=== PATIENT | female | born 1985 | race African-American/Black ===

== ENCOUNTER 2017-03-08 14:42 | Emergency (ER) | payer SELFPAY ==
--- NOTE | 2017-03-08 15:20 | ER Document Report ---
ED Medical Screen (RME) - General Chief Complaint: Abdominal Pain Stated Complaint: ABDOMINA PAIN Time Seen by Provider: 03/08/17 15:18 Mode of Arrival: Ambulatory Information source: Patient TRAVEL OUTSIDE OF THE [place] IN LAST 30 DAYS: No - HPI Patient complains to provider of: abd pain Onset: Other - pt. with 2 day h/o L -sided abdominal pain - Related Data Allergies/Adverse Reactions: No Known Allergies Allergy (Verified 03/08/17 14:53) Past Medical History - Social History Chew tobacco use (# tins/day): No Frequency of alcohol use: None Drug Abuse: None Renal/ Medical History: Denies: Hx Peritoneal Dialysis Surgical Hx: Negative - Immunizations Hx Diphtheria, Pertussis, Tetanus Vaccination: Yes Physical Exam - Vital signs Vitals: Temp Pulse Resp BP Pulse Ox 98.2 F 85 16 113/66 99 03/08/17 14:53 03/08/17 14:53 03/08/17 14:53 03/08/17 14:53 03/08/17 14:53 Course - Vital Signs Vital signs: Temp Pulse Resp BP Pulse Ox 98.2 F 85 16 113/66 99 03/08/17 14:53 03/08/17 14:53 03/08/17 14:53 03/08/17 14:53 03/08/17 14:53
[2017-03-08 16:02] LABS: ABSOLUTE BASOPHILS # (AUTO) 0.1 10^3/uL (0.0-0.2); ABSOLUTE EOSINOPHILS # (AUTO) 0.2 10^3/uL (0.0-0.6); ABSOLUTE LYMPHOCYTES (AUTO) 2.2 10^3/uL (0.5-4.7); ABSOLUTE MONOCYTES (AUTO) 0.5 10^3/uL (0.1-1.4); ABSOLUTE NEUT (AUTO) 3.4 10^3/uL (1.7-8.2); BASOPHILS % (AUTO) 0.9 % (0-2); EOSINOPHILS % (AUTO) 3.2 % (0-6); HEMATOCRIT 33.7 % (36.0-47.0); HEMOGLOBIN 10.6 g/dL (12.0-15.5); HGB HCT DIFFERENCE -1.9; LYMPHOCYTES % (AUTO) 34.3 % (13-45); MEAN CORPUSCULAR HEMOGLOBIN 20.5 pg (27.0-33.4); MEAN CORPUSCULAR HGB CONC 31.5 g/dL (32.0-36.0); MEAN CORPUSCULAR VOLUME 65 fl (80-97); MONOCYTES % (AUTO) 8.6 % (3-13); RED BLOOD COUNT 5.17 10^6/uL (3.72-5.28); RED CELL DISTRIBUTION WIDTH 18.9 % (11.5-14.0); WHITE BLOOD COUNT 6.4 10^3/uL (4.0-10.5)
[2017-03-08 16:16] LABS: APPEARANCE,URINE CLEAR; BILIRUBIN,URINE NEGATIVE (NEGATIVE); GLUCOSE, URINE NEGATIVE (NEGATIVE); KETONES,URINE NEGATIVE (NEGATIVE); LEUKOCYTE ESTERASE,URINE NEGATIVE (NEGATIVE); NITRITE,URINE NEGATIVE (NEGATIVE); PROTEIN,URINE NEGATIVE (NEGATIVE); URINE SPECIFIC GRAVITY 1.012; UROBILINOGEN,URINE NEGATIVE mg/dL (<2.0)
--- NOTE | 2017-03-08 16:53 | RADIOLOGY REPORT (SQ) ---
EXAM DESCRIPTION: CT ABD/PELVIS WITH IV ONLY COMPLETED DATE/TIME: 03/08/2017 4:30 pm REASON FOR STUDY: abd pain COMPARISON: 11/23/2014. TECHNIQUE: CT scan of the abdomen and pelvis performed using helical scanning technique with dynamic intravenous contrast injection. No oral contrast. Images reviewed with lung, soft tissue, and bone windows. Reconstructed coronal and sagittal MPR images reviewed. Delayed images for evaluation of the urinary system also acquired. All images stored on PACS. All CT scanners at this facility use dose modulation, iterative reconstruction, and/or weight based d osing when appropriate to reduce radiation dose to as low as reasonably achievable (ALARA). [facility]: Dose Right [facility]: CareDose [facility]: Dose Right [facility]: Teradose 4D [facility]: DiaDerma BV CONTRAST TYPE AND DOSE: contrast/concentration: Isovue 370.00 mg/ml; Total Contrast Delivered: 100.0 ml; Total Saline Delivered: 45.0 ml RENAL FUNCTION: None required. The patient is less than 50 years old. RADIATION DOSE: Up-to-date CT equipment and radiation dose reduction techniques were employed. CTDIv ol: 16.2 - 20.2 mGy. DLP: 1990 mGy-cm.. LIMITATIONS: None. FINDINGS: LOWER CHEST: No significant findings. No nodules or infiltrates. LIVER: Normal size. No masses. No dilated ducts. SPLEEN: Normal size. No focal lesions. PANCREAS: No masses. No significant calcifications. No adjacent inflammation or peripancreatic fluid collections. Pancreatic duct not dilated. GALLBLADDER: No identified stones by CT criteria. No inflammatory changes to suggest cholecystitis. ADRENAL GLANDS: No significant masses or asymmetry. RIGHT KIDNEY AND URETER: No solid masses. No significant calcifications. No hydronephrosis or hyd roureter. LEFT KIDNEY AND URETER: No solid masses. No significant calcifications. No hydronephrosis or hydr oureter. AORTA AND VESSELS: No aneurysm. No dissection. Renal arteries, SMA, celiac without stenosis. RETROPERITONEUM: No retroperitoneal adenopathy, hemorrhage or masses. BOWEL AND PERITONEAL CAVITY: No masses or inflammatory changes. No free fluid or peritoneal masses. APPENDIX: Normal. PELVIS: No mass. No free fluid. Normal bladder. ABDOMINAL WALL: No masses. No hernias. BONES: No significant or acute findings. OTHER: No other significant finding. IMPRESSION: NO SIGNIFICANT OR ACUTE FINDING IN THE ABDOMEN OR PELVIS ON CT SCAN WITH IV CONTRAST. TECHNICAL DOCUMENTATION: JOB ID: [id number] Quality ID # [id number]: Final reports with documentation of one or more dose reduction techniques (e.g., Au tomated exposure control, adjustment of the mA and/or kV according to patient size, use of iterative reconstruction technique) 2010 [employer]- All Rights Reserved
[2017-03-08 18:10] LABS: ALANINE AMINOTRANSFERASE 22 U/L (9-52); ALBUMIN 4.3 g/dL (3.5-5.0); ALKALINE PHOSPHATASE 89 U/L (38-126); ANION GAP 12 (5-19); ASPARTATE AMINO TRANSFERASE 18 U/L (14-36); BILIRUBIN,DIRECT 0.3 mg/dL (0.0-0.4); BILIRUBIN,TOTAL 0.4 mg/dL (0.2-1.3); BLOOD UREA NITROGEN 8 mg/dL (7-20); CARBON DIOXIDE 24 mmol/L (22-30); CHLORIDE 102 mmol/L (98-107); CREATININE RESULT 0.69 mg/dL (0.52-1.25); GLUCOSE 99 mg/dL (75-110); LIPASE 65.5 U/L (23-300); POTASSIUM 4.2 mmol/L (3.6-5.0); SODIUM 138.1 mmol/L (137-145); TOTAL PROTEIN 7.6 g/dL (6.3-8.2)
--- NOTE | 2017-03-08 18:10 | ER Document Report ---
HPI - HPI Pain Level: 3 Notes: Patient is a 31-year-old female who presents the ED complaining of left side/ abdomen pain 2 days without any precipitating event or known injury. Patient states that the pain does not radiate. The pain worsens if she lays on her left side or she applies pressure or with any right lateral flexion. Patient states that she did have nausea and vomiting yesterday but no vomiting today. Patient was able to keep down a corn dog this afternoon. Patient states that she does not feel the pain she is not lying on her side. Patient states that she does feel similar pain in her lower back as well. She denies any loss of control of bowel or bladder, urinary retention, saddle anesthesia, numbness/ tingling, muscle paralysis/weakness. Denies any fever, URI, sore throat, headache, chest pain, palpitations, syncope, cough, wheeze, shortness of breath , dyspnea, diarrhea, constipation, melena, hematochezia, dysuria, hematuria, increased frequency, vaginal pain, vaginal discharge, or rash. Denies any recent illness, travel, sick contacts. Denies any history of chickenpox. Denies the vaccine. Denies any drug allergies, daily medications, significant past medical history, or current PCM. Denies any smoking or illicit drug use. Denies any procedures in her back. - ROS Notes: REVIEW OF SYSTEMS: CONSTITUTIONAL : Denies fever, chills, or sweats. Denies recent illness. EENT: Denies eye, ear, throat, or mouth pain or symptoms. Denies nasal or sinus congestion or discharge. Denies throat, tongue, or mouth swelling or difficulty swallowing. CARDIOVASCULAR: Denies chest pain. Denies palpitations or racing or irregular heart beat. Denies ankle edema. RESPIRATORY: Denies cough, cold, or chest congestion. Denies shortness of breath, difficulty breathing, or wheezing. GASTROINTESTINAL: see hpi GENITOURINARY: Denies difficulty urinating, painful urination, burning, frequency, blood in urine, or discharge. FEMALE GENITOURINARY: Denies vaginal bleeding, heavy or abnormal periods, irregular periods. Denies vaginal discharge or odor. MUSCULOSKELETAL: see hpi SKIN: Denies rash, lesions or sores. NEUROLOGICAL: Denies confusion or altered mental status. Denies passing out or loss of consciousness. Denies dizziness or lightheadedness. Denies headache. Denies weakness or paralysis or loss of use of either side. Denies problems with gait or speech. Denies sensory loss, numbness, or tingling. ALL OTHER SYSTEMS REVIEWED AND NEGATIVE. Dictation was performed using [employer] voice recognition software - CARDIOVASCULAR Cardiovascular: DENIES: Chest pain - REPRODUCTIVE LMP: 02/14/17 Reproductive: DENIES: : - DERM Skin Color: Normal Past Medical History - General Information source: Patient - Social History Smoking Status: Never Smoker Chew tobacco use (# tins/day): No Frequency of alcohol use: None Drug Abuse: None Family History: Reviewed & Not Pertinent Renal/ Medical History: Denies: Hx Peritoneal Dialysis Surgical Hx: Negative - Immunizations Hx Diphtheria, Pertussis, Tetanus Vaccination: Yes Vertical Provider Document - CONSTITUTIONAL Agree With Documented VS: Yes Notes: PHYSICAL EXAMINATION: GENERAL: Well-appearing, well-nourished and in no acute distress. HEAD: Atraumatic, normocephalic. NECK: Normal range of motion, supple without lymphadenopathy. No rigidity. LUNGS: Breath sounds clear to auscultation bilaterally and equal. No wheezes rales or rhonchi. HEART: Regular rate and rhythm without murmurs, rubs, gallops. ABDOMEN: Soft, nontender, nondistended abdomen. No guarding, no rebound. No masses appreciated. Normal bowel sounds present. ?CVA tenderness of the left. Psoas/obturator/rosvings/francisco negative. see back exam as well. Musculoskeletal: LE's b/l: FROM to passive/active. Strength 5+/5. No focal deficits Back: FROM to passive/active. Strength 5+/5. No rash, erythema, inflammation , ecchymosis noted. + tenderness to palpation of the left T12 paraspinal area and wrapping around to the left side/flank. + tenderness to light palpation. SLR negative b/l. Extremities: No cyanosis, clubbing, or edema b/l. Peripheral pulses 2+. Capillary refill less than 2 seconds. NEUROLOGICAL: Normal speech, normal gait. Normal sensory, motor exams. PSYCH: Normal mood, normal affect. SKIN: Warm, Dry, normal turgor, no rashes or lesions noted. - INFECTION CONTROL TRAVEL OUTSIDE OF THE [place] IN LAST 30 DAYS: No - RESPIRATORY O2 Sat by Pulse Oximetry: 99 Course - Re-evaluation Re-evalutation: 03/08/17 20:44 Patient is an afebrile, well-hydrated, 31-year-old female presents the ED with left back, left flank pain not otherwise specified. Vitals are stable. PE otherwise unremarkable for any focal neurological deficits. I suspect that her condition could be musculoskeletal or originating from the back based on H&P. CBC, CMP, urine were all unremarkable. CT scan of the abdomen and pelvis was also unremarkable for any acute pathology. Patient is tolerating p.o. intake and food without any difficulties. A Toradol injection 30 mg was given IM today. Low suspicion for any acute appendicitis, bowel obstruction, acute cholecystitis, perforated diverticulitis, incarcerated hernia, pancreatitis, expanding/ruptured AAA, pelvic inflammatory disease, disc herniation causing severe spinal stenosis, cauda equina syndrome, epidural mass lesion/abscess, meningitis, perforated ulcer, ectopic , or tubo-ovarian abscess. Patient understands her condition can change from initial presentation and if noticing any acute changes needs to seek medical attention immediately. Patient discharged in stable and improved condition. Advised recheck/ establishment with a PCM in 2-3 days, and consider consult with orthopedics, physical therapy, general surgery, GI. Return to the ED with any worsening/ concerning symptoms otherwise as reviewed in discharge. Patient is in agreement. - Vital Signs Vital signs: Temp Pulse Resp BP Pulse Ox 98.2 F 85 16 113/66 99 03/08/17 14:53 03/08/17 14:53 03/08/17 14:53 03/08/17 14:53 03/08/17 14:53 - Laboratory Result Diagrams: 03/08/17 15:54 03/08/17 17:43 Laboratory results interpreted by me: 03/08/17 15:54 Hgb 10.6 L Hct 33.7 L MCV 65 L MCH 20.5 L MCHC 31.5 L RDW 18.9 H Discharge - Discharge Clinical Impression: Flank pain Back pain Qualifiers: Back pain location: thoracic back pain Chronicity: acute Back pain laterality: left Qualified Code(s): M54.6 - Pain in thoracic spine Condition: Stable Disposition: HOME, SELF-CARE Instructions: Abdominal Pain ([facility]), Toradol Injection ([facility]), Stretching Exercises for the Back ([facility]), Ice Packs ([facility]), Ice Massage ([facility]), Warm Packs ( [facility]) Additional Instructions: Maintain fluids Tylenol/ibuprofen as needed Use medication as directed Recheck/establish with a PCM this week Consider consult with orthopedics, gastroenterology as needed Return to the ED with any worsening symptoms and/or development of fever, headache, chest pain, palpitations, syncope, shortness of breath, trouble breathing, abdominal pain, n/v/d, blood in stool/urine, loss of control of bowel /bladder, urinary retention, muscle weakness/paralysis, saddle anesthesia, numbness/tingling, or other worsening symptoms that are concerning to you. Prescriptions: Diclofenac Sodium [Voltaren] 4 gm TP QID PRN #100 gel..gm. PRN Reason: Forms: Return to Work Referrals: [facility] [Provider Group] - Follow up as needed [facility] [Provider Group] - Follow up as needed [facility] [Provider Group] - Follow up as needed [facility] [Provider Group] - Follow up in 3-5 days
[2017-03-08] MEDS ORDERED: KETOROLAC TROMETHAMINE INJ/PF 30 MG/1 ML SDV IM ONE (18:41)
[2017-03-08 19:03] VITALS: BP 123/78
== END 2017-03-08 19:00 | disposition home or self-care (01) ==
LOC: ER 14:42
DX: R10.9 Unspecified abdominal pain (principal); M54.5 Low back pain; M54.6 Pain in thoracic spine
CPT/HCPCS: 99284; 96372; 36415; 83690; 85025; 81025; 80053; 81001; 74177; J1885

== ENCOUNTER 2017-09-10 13:02 | Emergency (ER) | payer SELFPAY ==
[2017-09-10] MEDS ORDERED: ACETAMINOPHEN 325 MG TABLET PO ONE (13:08)
[2017-09-10 13:10] VITALS: BP 133/90
[2017-09-10] MEDS ORDERED: IBUPROFEN 800 MG TABLET PO ONE (14:28)
--- NOTE | 2017-09-10 15:11 | ER Document Report ---
ED Extremity Problem, Upper - General Chief Complaint: Arm Pain Stated Complaint: LEFT HAND PAIN Time Seen by Provider: 09/10/17 14:01 Mode of Arrival: Ambulatory Information source: Patient Notes: 32-year-old female presented to ED for complaint of left wrist pain. She states she was moving furniture couple days ago unsure if she injured or not but the pain is increased overnight last night. She states she has not fallen or done anything since then. She does speak in clear full sentences walks with the even steady gait. She does have full range of motion to her wrist and hand. TRAVEL OUTSIDE OF THE [place] IN LAST 30 DAYS: No - HPI Patient complains to provider of: Left, Wrist Onset: Other - 2 days ago Recent injury: Possibly Where: Home, Indoors Quality of pain: Achy, Throbbing Severity of pain: Moderate Pain Level: 3 Context: Other - Moving furniture Associated symptoms: None Exacerbated by: Movement, Exertion Relieved by: Nothing Similar symptoms previously: No Recently seen / treated by doctor: No - Related Data Allergies/Adverse Reactions: No Known Allergies Allergy (Verified 03/08/17 14:53) Past Medical History - General Information source: Patient - Social History Smoking Status: Never Smoker Cigarette use (# per day): No Chew tobacco use (# tins/day): No Smoking Education Provided: No Frequency of alcohol use: None Drug Abuse: None Occupation: None Lives with: Family - Sister Family History: DM, Hypertension Patient has suicidal ideation: No Patient has homicidal ideation: No - Past Medical History Cardiac Medical History: Reports: None Pulmonary Medical History: Reports: None EENT Medical History: Reports: None Neurological Medical History: Reports: None Endocrine Medical History: Reports: None Renal/ Medical History: Reports: None Malignancy Medical History: Reports: None GI Medical History: Reports: None Musculoskeltal Medical History: Reports None Skin Medical History: Reports None Psychiatric Medical History: Reports: None Traumatic Medical History: Reports: None Infectious Medical History: Reports: None Past Surgical History: Reports: Hx Section - Immunizations Hx Diphtheria, Pertussis, Tetanus Vaccination: Yes Review of Systems - Review of Systems Constitutional: No symptoms reported EENT: No symptoms reported Cardiovascular: No symptoms reported Respiratory: No symptoms reported Gastrointestinal: No symptoms reported Genitourinary: No symptoms reported Female Genitourinary: No symptoms reported Musculoskeletal: Other - Left wrist pain Skin: No symptoms reported Hematologic/Lymphatic: No symptoms reported Neurological/Psychological: No symptoms reported Physical Exam - Vital signs Vitals: Temp Pulse Resp BP Pulse Ox 98.4 F 103 H 16 133/90 H 100 09/10/17 13:09 09/10/17 13:09 09/10/17 13:09/10/17 13:09/10/17 13:09 Interpretation: Normal - General General appearance: Appears well, Alert - HEENT Head: Normocephalic, Atraumatic Eyes: Normal Pupils: PERRL - Respiratory Respiratory status: No respiratory distress Chest status: Nontender Breath sounds: Normal Chest palpation: Normal - Cardiovascular Rhythm: Regular Heart sounds: Normal auscultation Murmur: No - Abdominal Inspection: Normal Distension: No distension Bowel sounds: Normal Tenderness: Nontender Organomegaly: No organomegaly - Back Back: Normal, Nontender - Extremities General upper extremity: Normal color, Normal ROM, Normal temperature General lower extremity: Normal inspection, Nontender, Normal color, Normal ROM , Normal temperature, Normal weight bearing. No: Juan Jose's sign Wrist: Tender. No: Abrasion, Axial load of thumb pain, Deformity, Dislocation, Ecchymosis, Instability, Laceration, Limited ROM, Navicular tenderness Hand: Tender, No evidence of human bite, No evidence of FB. No: Abrasion, Deformity, Dislocation, Ecchymosis, Instability, Laceration, Nail injury, Swelling, Tendon deficit - Neurological Neuro grossly intact: Yes Cognition: Normal Orientation: AAOx4 Rosalinda Coma Scale Eye Opening: Spontaneous Rosalinda Coma Scale Verbal: Oriented [place] Coma Scale Motor: Obeys Commands Rosalinda Coma Scale Total: 15 Speech: Normal Motor strength normal: LUE, RUE, LLE, RLE Sensory: Normal - Psychological Associated symptoms: Normal affect, Normal mood - Skin Skin Temperature: Warm Skin Moisture: Dry Skin Color: Normal Course - Re-evaluation Re-evalutation: 09/10/17 20:49 Patient was treated with a cock-up splint and ibuprofen and discharged home with instructions to follow-up with primary doctor and orthopedics. - Vital Signs Vital signs: Temp Pulse Resp BP Pulse Ox 98.4 F 103 H 16 133/90 H 100 09/10/17 13:09 09/10/17 13:09/10/17 13:09/10/17 13:09 09/10/17 13:09 - Diagnostic Test Radiology reviewed: Image reviewed, Reports reviewed Procedures - Immobilization Left Wrist Time completed: 16:15 Immobilizer type: Cock-up Performed by: PCT Post-Proc Neuro Vasc Exam: Normal Alignment checked and good: Yes Discharge - Discharge Clinical Impression: Left wrist pain HTN (hypertension) Qualifiers: Hypertension type: unspecified Qualified Code(s): I10 - Essential (primary) hypertension Condition: Stable Disposition: HOME, SELF-CARE Additional Instructions: You were seen today for pain to your left arm. She states she was moving furniture to 3 days ago but this morning you started having pain in your wrist were not able to lift your child. Your x-ray results have been discussed with you. A written report given to you for follow-up with your primary doctor. A cock-up splint has been applied to your wrist to help you with the pain. There is no breaks to the area this is just to help you with your pain until you can follow-up with orthopedics. ICE & ELEVATION: Apply ice packs frequently against the painful area. Many different schedules are recommended, such as "20 minutes on, 20 minutes off" or "one hour ice, two hours rest." If you need to work, you may need to go longer between ice treatments. You should plan to have the area ice packed AT LEAST one- fourth of the time. The ice should be applied over the wrap, tape, or splint, or over a layer of cloth -- not directly against the skin. Some ice bags have a built-in cloth and can be put directly on the skin. Your injured part should be elevated as much as possible over the next 48 hours. Try to keep the injury above the level of the heart. Avoid use of the injured area. Elevation and rest will decrease the swelling. USE OF BEHN-RPL-JIMEZGT IBUPROFEN: Ibuprofen (Advil, Nuprin, Medipren, Motrin IB) is a medication for fever and pain control. In addition, it has anti- inflammatory effects which may be beneficial, especially in the treatment of injuries. It's best to take ibuprofen with food. Persons with ulcer disease or allergy to aspirin should notify their physician of this before taking ibuprofen. Ibuprofen can be given every four to six hours, for a total of four doses daily. Age Pain or fever dose Antiinflammatory dose 6-8 yr 200 mg (1 tab) 200 mg (1 tab) 9-11 yr 200 mg (1 tab) 200-400 mg (1-2 tab) 11-14 yr 200-400 mg (1-2 tab) 400 mg (2 tab) 15-adult 400 mg (2 tab) 600 mg (3 tab) FOLLOW-UP CARE: If you have been referred to a physician for follow-up care, call the physician s office for an appointment as you were instructed or within the next two days. If you experience worsening or a significant change in your symptoms, notify the physician immediately or return to the Emergency Department at any time for re-evaluation. Forms: Elevated Blood Pressure Referrals: REECE ROWELL MD [Primary Care Provider] - Follow up as needed
--- NOTE | 2017-09-10 15:37 | RADIOLOGY REPORT (SQ) ---
EXAM DESCRIPTION: WRIST LEFT 3 VIEWS COMPLETED DATE/TIME: 09/10/2017 3:28 pm REASON FOR STUDY: Pain and injury COMPARISON: None. NUMBER OF VIEWS: Three views. TECHNIQUE: AP, lateral, and oblique radiographic images acquired of the left wrist. LIMITATIONS: None. FINDINGS: MINERALIZATION: Normal. BONES: No acute fracture or dislocation. No worrisome bone lesions. Normal alignment. SOFT TISSUES: No soft tissue swelling. No foreign body. OTHER: No other significant finding. IMPRESSION: NEGATIVE STUDY OF THE LEFT WRIST. NO RADIOGRAPHIC EVIDENCE OF ACUTE INJURY. TECHNICAL DOCUMENTATION: JOB ID: [id number] [employer]- All Rights Reserved
== END 2017-09-10 16:10 | disposition home or self-care (01) ==
LOC: ER 13:02
DX: M79.642 Pain in left hand (principal); M25.532 Pain in left wrist; X58.XXXA Exposure to other specified factors, initial encounter; Y92.009 Unspecified place in unspecified non-institutional (private) residence as the place of occurrence of the external cause; I10 Essential (primary) hypertension
CPT/HCPCS: 99283; 73110; L3908

== ENCOUNTER 2018-01-18 22:06 | Emergency (ER) | payer SELFPAY ==
[2018-01-18 23:10] LABS: APPEARANCE,URINE SLIGHTLY-CLOUDY; BILIRUBIN,URINE SMALL (NEGATIVE); COLOR,URINE AMBER; GLUCOSE, URINE NEGATIVE (NEGATIVE); KETONES,URINE TRACE mg/dL (NEGATIVE); LEUKOCYTE ESTERASE,URINE TRACE (NEGATIVE); NITRITE,URINE NEGATIVE (NEGATIVE); PROTEIN,URINE 30 mg/dL (NEGATIVE)
--- NOTE | 2018-01-18 23:16 | ER Document Report ---
HPI - HPI Pain Level: 4 Context: Patient is a 32-year-old female presents emergency room the chief complaint of vaginal irritation and burning for the past 2 days. States that she recently completed her period 1 week ago. She admits to using a new soap at her hotel. States she is not sexually active currently. Denies any pelvic pain - CONSTITUTIONAL Constitutional: DENIES: Fever, Chills - EENT EENT: DENIES: Sore Throat, Ear Pain, Eye problems - NEURO Neurology: DENIES: Headache, Weakness, Vision blurred, Dizzinesss / Vertigo - CARDIOVASCULAR Cardiovascular: DENIES: Chest pain - RESPIRATORY Respiratory: DENIES: Trouble Breathing, Coughing - GASTROINTESTINAL Gastrointestinal: DENIES: Abdominal Pain, Black / Bloody Stools - URINARY Urinary: DENIES: Dysuria, Urgency, Frequency - REPRODUCTIVE Reproductive: REPORTS: Abnormal bleeding / discharge. DENIES: : - MUSCULOSKELETAL Musculoskeletal: DENIES: Extremity pain Past Medical History - Social History Smoking Status: Unknown if Ever Smoked Family History: DM, Hypertension Patient has suicidal ideation: No Patient has homicidal ideation: No Renal/ Medical History: Denies: Hx Peritoneal Dialysis Past Surgical History: Reports: Hx Section - Immunizations Hx Diphtheria, Pertussis, Tetanus Vaccination: Yes Vertical Provider Document - CONSTITUTIONAL Agree With Documented VS: Yes Notes: PHYSICAL EXAM GENERAL: Alert, interacts well. HEAD: Normocephalic, atraumatic. ABDOMEN: Soft, nondistended, nontender. No guarding, rebound, or rigidity.. Bowel sounds present in all 4 quadrants. FEMALE : Evidence of of vaginal irritation with abrasions and bleeding no evidence of lesions, lacerations, bruising or vesicles. Speculum exam normal cervix closed. evidence of white vaginal discharge with odor. No evidence of lesions. No vaginal bleeding. Bimanual exam normal no cervical motion tenderness. No adnexal mass or adnexal tenderness. NEUROLOGICAL: Alert and oriented x4. Normal speech. PSYCH: Normal affect, normal mood. SKIN: Warm, dry, normal turgor. No rashes or lesions noted. - INFECTION CONTROL TRAVEL OUTSIDE OF THE [place] IN LAST 30 DAYS: No Course - Re-evaluation Re-evalutation: 01/19/18 00:13 Patient is a 32-year-old female presents with vaginal irritation. Presentation is consistent with vaginitis. no evidence of yeast on wet mount. Will treat patient with Flagyl and discussed with her to change the soap to follow-up with primary care and [facility]. Patient is a plan stable for discharge b - Laboratory Laboratory results interpreted by me: 01/18/18 22:56 Urine Protein 30 H Urine Ketones TRACE H Urine Blood MODERATE H Urine Bilirubin SMALL H Urine Urobilinogen 4.0 H Ur Leukocyte Esterase TRACE H Discharge - Discharge Clinical Impression: Vaginal discharge Condition: Good Disposition: HOME, SELF-CARE Instructions: Vaginitis ([facility]) Prescriptions: Metronidazole [Flagyl 500 mg Tablet] 500 mg PO BID 7 Days #14 tablet Referrals: REECE ROWELL MD [Primary Care Provider] - Follow up in 3-5 days
[2018-01-19 00:03] LABS: EPITHELIALS (WET MOUNT) 4+ EPITHELIALS SEEN; RBCS (WET MOUNT) RARE RBCS SEEN; T.VAGINALIS (WET MOUNT) NO TRICHOMONAS SEEN; WBCS (WET MOUNT) FEW WBCS SEEN; YEAST (WET MOUNT) NO YEAST SEEN
[2018-01-19] MEDS ORDERED: METRONIDAZOLE 500 MG TABLET PO ONE (00:16)
[2018-01-19 01:28] LABS: CHLAM PCR NOT DETECTED (NOT DETECT); GON PCR NOT DETECTED (NOT DETECT)
== END 2018-01-19 01:00 | disposition home or self-care (01) ==
LOC: ER 22:06
DX: N89.8 Other specified noninflammatory disorders of vagina (principal); S30.814A Abrasion of vagina and vulva, initial encounter; X58.XXXA Exposure to other specified factors, initial encounter
CPT/HCPCS: 81001; 81025; 87210; 87491; 87591; 99284

== ENCOUNTER 2018-01-26 12:20 | Emergency (ER) | payer SELFPAY ==
[2018-01-26] MEDS ORDERED: IBUPROFEN 800 MG TABLET PO ONE (13:09)
--- NOTE | 2018-01-26 13:15 | ER Document Report ---
ED Hand/Wrist Injury - General Chief Complaint: Finger Injury Stated Complaint: FINGER INJURY Time Seen by Provider: 01/26/18 13:04 Mode of Arrival: Ambulatory Information source: Patient Notes: 32-year-old female presents to ED for complaint of pain to the fourth digit on the left hand. She states she jammed her finger while packing boxes. She states she jammed the finger on the other hand also but it is feeling better. She states it hurts to move the finger it causes her hand to hurt. She states she does not have a past medical history she lives alone and does not work. Is alert and oriented, pupils equal and react to light, speech is in full sentences, respirations are regular and unlabored, and she walks with a even steady gait. TRAVEL OUTSIDE OF THE [place] IN LAST 30 DAYS: No - HPI Injury to: Ring finger Onset: Other - 4 days ago Where: Home Timing: Still present Quality of pain: Achy Severity: Severe Pain Level: 5 Context: Other - Not sure how she injured it - Related Data Allergies/Adverse Reactions: No Known Allergies Allergy (Verified 01/26/18 12:29) Past Medical History - General Information source: Patient - Social History Smoking Status: Never Smoker Cigarette use (# per day): No Chew tobacco use (# tins/day): No Smoking Education Provided: No Frequency of alcohol use: None Drug Abuse: None Occupation: Does not work Lives with: Alone Family History: DM, Hypertension. denies: Arthritis, CAD, COPD, CVA, Hyperlipidemia, Malignancy, Thyroid Disfunction Patient has suicidal ideation: No Patient has homicidal ideation: No - Past Medical History Cardiac Medical History: Reports: None Pulmonary Medical History: Reports: None EENT Medical History: Reports: None Neurological Medical History: Reports: None Endocrine Medical History: Reports: None Renal/ Medical History: Reports: None Malignancy Medical History: Reports: None GI Medical History: Reports: None Musculoskeltal Medical History: Reports None Skin Medical History: Reports None Psychiatric Medical History: Reports: None Traumatic Medical History: Reports: None Infectious Medical History: Reports: None Past Surgical History: Reports: Hx Section - Immunizations Immunizations up to date: Yes Hx Diphtheria, Pertussis, Tetanus Vaccination: Yes Review of Systems - Review of Systems Constitutional: No symptoms reported EENT: No symptoms reported Cardiovascular: No symptoms reported Respiratory: No symptoms reported Gastrointestinal: No symptoms reported Genitourinary: No symptoms reported Female Genitourinary: No symptoms reported Musculoskeletal: Other - Pain swelling to the left ring finger Skin: No symptoms reported Hematologic/Lymphatic: No symptoms reported Neurological/Psychological: No symptoms reported -: Yes All other systems reviewed and negative Physical Exam - Vital signs Vitals: Temp Pulse Resp BP Pulse Ox 98.8 F 107 H 16 113/69 98 01/26/18 12:31 01/26/18 12:31 01/26/18 12:31 01/26/18 12:31 01/26/18 12:31 Interpretation: Normal - General General appearance: Appears well, Alert - HEENT Head: Normocephalic, Atraumatic Eyes: Normal Pupils: PERRL - Respiratory Respiratory status: No respiratory distress Chest status: Nontender Breath sounds: Normal Chest palpation: Normal - Cardiovascular Rhythm: Regular Heart sounds: Normal auscultation Murmur: No - Abdominal Inspection: Normal Distension: No distension Bowel sounds: Normal Tenderness: Nontender Organomegaly: No organomegaly - Back Back: Normal, Nontender - Extremities General upper extremity: Normal color, Normal temperature General lower extremity: Normal inspection, Nontender, Normal color, Normal ROM , Normal temperature, Normal weight bearing. No: Juan Jose's sign Hand: Tender - Left ring finger, Ecchymosis - Left ring finger, No evidence of human bite, No evidence of FB, Swelling - Ring finger - Neurological Neuro grossly intact: Yes Cognition: Normal Orientation: AAOx4 Bunn Coma Scale Eye Opening: Spontaneous Rosalinda Coma Scale Verbal: Oriented Rosalinda Coma Scale Motor: Obeys Commands Bunn Coma Scale Total: 15 Speech: Normal Motor strength normal: LUE, RUE, LLE, RLE Sensory: Normal - Psychological Associated symptoms: Normal affect, Normal mood - Skin Skin Temperature: Warm Skin Moisture: Dry Skin Color: Normal Course - Vital Signs Vital signs: Temp Pulse Resp BP Pulse Ox 98.5 F 71 18 119/66 99 01/26/18 15:22 01/26/18 15:22 01/26/18 15:22 01/26/18 15:22 01/26/18 15:22 - Diagnostic Test Radiology reviewed: Image reviewed, Reports reviewed Procedures - Immobilization Left Hand Time completed: 15:18 Immobilizer type: Cock-up Performed by: PCT Post-Proc Neuro Vasc Exam: Normal Alignment checked and good: Yes Discharge - Discharge Clinical Impression: Finger contusion Qualifiers: Encounter type: initial encounter Finger: ring finger Damage to nail status: without damage Laterality: left Qualified Code(s): S60.042A - Contusion of left ring finger without damage to nail, initial encounter Condition: Stable Disposition: HOME, SELF-CARE Additional Instructions: CONTUSION: Your injury has resulted in a contusion -- a crushing of the deep tissues. No injury to important structures was detected during the physician's exam. Contusions vary in the amount of pain they cause, and in the length of time required for healing. Typically, the area will become bruised, and will remain painful to touch for two or three weeks. However, most patients are back to working and playing within a few days. After the initial period of rest and cold-packs, your symptoms (together with the doctor's recommendations) will determine how rapidly you can get back to full activity. Usually this means "do what feels okay, but don't do things that hurt." If re-examination was recommended, it's important to follow up as instructed. Call the doctor or return any time if pain increases, if swelling becomes severe, if you develop numbness or weakness in an injured extremity, or if any other alarming symptoms occur. USE OF TYLENOL (ACETAMINOPHEN): Acetaminophen may be taken for pain relief or fever control. It's much safer than aspirin, offering a wider range of "safe" dosages. It is safe during . Some brand names are Tylenol, Panadol, Datril, Anacin 3, Tempra, and Liquiprin. Acetaminophen can be repeated every four hours. The following are maximum recommended dosages: WEIGHT Dose Drops Elixir Chewable( 80mg) (LBS.) drprs=droppers tsp=teaspoon 6 40 mg 0.4 ml (1/2) 6-11 80 mg 0.8 ml (full) tsp 1 tab 12-16 120 mg 1 1/2 drprs 3/4 tsp 1 1/2 tabs 17-23 160 mg 2 drprs 1 tsp 2 tabs 24-30 240 mg 3 drprs 1 1/2 tsp 3 tabs 30-35 320 mg 2 tsp 4 tabs 36-41 360 mg 2 1/4 tsp 4 1/2 tabs 42-47 400 mg 2 1/2 tsp 5 tabs 48-53 480 mg 3 tsp 6 tabs 54-59 520 mg 3 1/4 tsp 6 1/2 tabs 60-64 560 mg 3 1/2 tsp 7 tabs 65-70 600 mg 3 3/4 tsp 7 1/2 tabs 71-76 640 mg 4 tsp 8 tabs 77-82 720 mg 4 1/2 tsp 9 tabs 83-88 800 mg 5 tsp 10 tabs >89 pounds or adults 650 mg to 900 mg Acetaminophen can be repeated every four hours. Maximum dose not to exceed 4000 mg a day. These maximum recommended dosages are slightly higher than the dosages written on the product container, but these dosages are very safe and below the toxic dosage for acetaminophen. ICE & ELEVATION: Apply ice packs frequently against the painful area. Many different schedules are recommended, such as "20 minutes on, 20 minutes off" or "one hour ice, two hours rest." If you need to work, you may need to go longer between ice treatments. You should plan to have the area ice packed AT LEAST one- fourth of the time. The ice should be applied over the wrap, tape, or splint, or over a layer of cloth -- not directly against the skin. Some ice bags have a built-in cloth and can be put directly on the skin. Your injured part should be elevated as much as possible over the next 48 hours. Try to keep the injury above the level of the heart. Avoid use of the injured area. Elevation and rest will decrease the swelling. USE OF IFUS-STW-QSQEGOY IBUPROFEN: Ibuprofen (Advil, Nuprin, Medipren, Motrin IB) is a medication for fever and pain control. In addition, it has anti- inflammatory effects which may be beneficial, especially in the treatment of injuries. It's best to take ibuprofen with food. Persons with ulcer disease or allergy to aspirin should notify their physician of this before taking ibuprofen. Ibuprofen can be given every four to six hours, for a total of four doses daily. Age Pain or fever dose Antiinflammatory dose 6-8 yr 200 mg (1 tab) 200 mg (1 tab) 9-11 yr 200 mg (1 tab) 200-400 mg (1-2 tab) 11-14 yr 200-400 mg (1-2 tab) 400 mg (2 tab) 15-adult 400 mg (2 tab) 600 mg (3 tab) FOLLOW-UP CARE: If you have been referred to a physician for follow-up care, call the physician s office for an appointment as you were instructed or within the next two days. If you experience worsening or a significant change in your symptoms, notify the physician immediately or return to the Emergency Department at any time for re-evaluation. Forms: Return to Work Referrals: REECE ROWELL MD [Primary Care Provider] - Follow up as needed VONNIE ERVIN MD [ACTIVE STAFF] - Follow up as needed
--- NOTE | 2018-01-26 14:27 | RADIOLOGY REPORT (SQ) ---
EXAM DESCRIPTION: HAND LEFT 3 VIEWS COMPLETED DATE/TIME: 01/26/2018 1:55 pm REASON FOR STUDY: jammed left ring finger pain swelling COMPARISON: None. EXAM PARAMETERS: NUMBER OF VIEWS: Three views. TECHNIQUE: AP, lateral and oblique radiographic images acquired of the left hand. LIMITATIONS: None. FINDINGS: MINERALIZATION: Normal. BONES: No acute fracture or dislocation. No worrisome bone lesions. JOINTS: Joint spaces maintained. SOFT TISSUES: No metallic foreign bodies. OTHER: No other significant finding. IMPRESSION: No acute fractures identified. TECHNICAL DOCUMENTATION: JOB ID: [id number] [employer]- All Rights Reserved Reading location - IP/workstation name: [email or web address]
[2018-01-26 15:23] VITALS: BP 119/66
== END 2018-01-26 15:23 | disposition home or self-care (01) ==
LOC: ER 12:20
DX: S60.042A Contusion of left ring finger without damage to nail, initial encounter (principal); M79.645 Pain in left finger(s); W51.XXXA Accidental striking against or bumped into by another person, initial encounter; Y93.89 Activity, other specified; Y92.009 Unspecified place in unspecified non-institutional (private) residence as the place of occurrence of the external cause
CPT/HCPCS: 99283; 73130; L3908

== ENCOUNTER 2018-03-22 19:15 | Emergency (ER) | payer SELFPAY ==
[2018-03-22 20:32] VITALS: BP 124/73
--- NOTE | 2018-03-22 21:20 | ER Document Report ---
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 Denies any numbness or tingling or arms. Denies any recent falls or traumas. TRAVEL OUTSIDE OF THE [place] IN LAST 30 DAYS: No - Related Data Allergies/Adverse Reactions: No Known Allergies Allergy (Verified 01/26/18 12:29) Past Medical History - Social History Smoking Status: Unknown if Ever Smoked Family History: DM, Hypertension. denies: Arthritis, CAD, COPD, CVA, Hyperlipidemia, Malignancy, Thyroid Disfunction Renal/ Medical History: Denies: Hx Peritoneal Dialysis Past Surgical History: Reports: Hx Section - Immunizations Immunizations up to date: Yes Hx Diphtheria, Pertussis, Tetanus Vaccination: Yes Review of Systems - Review of Systems Constitutional: No symptoms reported EENT: No symptoms reported Cardiovascular: No symptoms reported Respiratory: No symptoms reported Gastrointestinal: No symptoms reported Genitourinary: No symptoms reported Female Genitourinary: No symptoms reported Musculoskeletal: See HPI Skin: No symptoms reported Hematologic/Lymphatic: No symptoms reported Neurological/Psychological: No symptoms reported Physical Exam - Vital signs Vitals: Temp Pulse Resp BP Pulse Ox 99.0 F 82 16 124/73 94 03/22/18 19:28 03/22/18 19:28 03/22/18 19:28 03/22/18 19:28 03/22/18 19:28 - General General appearance: Appears well, Alert - HEENT Head: Normocephalic - Right-sided tight trapezius muscles with no induration or erythema erythema, Atraumatic Course - Re-evaluation Re-evalutation: 03/22/18 21:17 Patient signs and systems consistent with trapezius and cervical strain. Will provide anti-inflammatories and muscle relaxers follow-up with primary care physician next week if symptoms are continuing. Advised patient to not lift more than 25 pounds next week - Vital Signs Vital signs: Temp Pulse Resp BP Pulse Ox 99.0 F 82 16 124/73 94 03/22/18 19:28 03/22/18 19:28 03/22/18 19:28 03/22/18 19:28 03/22/18 19:28 Discharge - Discharge Clinical Impression: Cervical strain, acute Qualifiers: Encounter type: initial encounter Qualified Code(s): S16.1XXA - Strain of muscle, fascia and tendon at neck level, initial encounter Condition: Good Disposition: HOME, SELF-CARE Instructions: Neck Injury (Cervical Strain) ([facility]) Additional Instructions: Do not lift more than 25 pounds in the next week. Prescriptions: Naproxen 500 mg PO BID #20 tablet Forms: Return to Work Referrals: REECE ROWELL MD [Primary Care Provider] - Follow up as needed
== END 2018-03-22 21:27 | disposition home or self-care (01) ==
LOC: ER 19:15
DX: S16.1XXA Strain of muscle, fascia and tendon at neck level, initial encounter (principal); X50.0XXA Overexertion from strenuous movement or load, initial encounter; Y99.0 Civilian activity done for income or pay
CPT/HCPCS: 99283

== ENCOUNTER 2018-05-26 19:55 | Emergency (ER) | payer SELFPAY ==
[2018-05-26 20:46] LABS: APPEARANCE,URINE CLEAR; BILIRUBIN,URINE NEGATIVE (NEGATIVE); COLOR,URINE YELLOW; GLUCOSE, URINE NEGATIVE (NEGATIVE); KETONES,URINE NEGATIVE (NEGATIVE); LEUKOCYTE ESTERASE,URINE NEGATIVE (NEGATIVE); NITRITE,URINE NEGATIVE (NEGATIVE); PROTEIN,URINE NEGATIVE (NEGATIVE); URINE SPECIFIC GRAVITY 1.025
[2018-05-26 21:05] VITALS: BP 124/79
--- NOTE | 2018-05-26 21:07 | ER Document Report ---
HPI - HPI Pain Level: 4 Notes: Patient is a 33-year-old female who presents with chief complaint of pain around the vaginal area after using a new soap yesterday. Patient denies any dysuria but states that she has pain as urine passes through the vagina. Patient reports she used Dove scented soap which she has not used before. Patient denies any abnormal vaginal discharge. - REPRODUCTIVE LMP: 04-30-18 Reproductive: DENIES: : Past Medical History - General Information source: Patient - Social History Smoking Status: Never Smoker Frequency of alcohol use: None Drug Abuse: None Family History: DM, Hypertension. denies: Arthritis, CAD, COPD, CVA, Hyperlipidemia, Malignancy, Thyroid Disfunction - Medical History Medical History: Negative Renal/ Medical History: Denies: Hx Peritoneal Dialysis Past Surgical History: Reports: Hx Section - Immunizations Immunizations up to date: Yes Hx Diphtheria, Pertussis, Tetanus Vaccination: Yes Vertical Provider Document - CONSTITUTIONAL Notes: PHYSICAL EXAMINATION: GENERAL: Well-appearing, well-nourished and in no acute distress. HEAD: Atraumatic, normocephalic. EYES: Pupils equal round extraocular movements intact, conjunctiva are normal. ENT: Nares patent NECK: Normal range of motion LUNGS: No respiratory distress Musculoskeletal: Normal range of motion NEUROLOGICAL: Normal speech, normal gait. PSYCH: Normal mood, normal affect. SKIN: Warm, Dry, normal turgor, no rashes or lesions noted. Mild erythema noted around the external labia, no abnormality noted to the vagina or internal labia. - INFECTION CONTROL TRAVEL OUTSIDE OF THE [place] IN LAST 30 DAYS: No Course - Re-evaluation Re-evalutation: Urinalysis was performed and is negative for any infection. Patient will be given a topical protective cream for her skin. Instructed not to use the Dove scented soap on her vagina again. - Vital Signs Vital signs: Temp Pulse Resp BP Pulse Ox 98.7 F 91 18 125/78 98 05/26/18 19:59 05/26/18 19:59 05/26/18 19:59 05/26/18 19:59 05/26/18 19:59 - Laboratory Laboratory results interpreted by me: 05/26/18 20:23 Urine Urobilinogen 4.0 H Discharge - Discharge Clinical Impression: Rash and nonspecific skin eruption, Vaginal pain Condition: Stable Disposition: HOME, SELF-CARE Additional Instructions: The rash you are experiencing is probably due to a mild allergic reaction to the soap you use last night. Use the cream where given you in the emergency room for tonight only. Then get the cream filled tomorrow and use at 3 times daily. Air out the area when possible. Wear only cotton underwear. Do not use the Dove scented soap again. Prescriptions: Miscellaneous Medication [Happy Hiney Cream] 1 applic TOP ASDIR PRN #60 gm PRN Reason: Forms: Return to Work Referrals: REECE ROWELL MD [Primary Care Provider] - Follow up as needed
== END 2018-05-26 21:09 | disposition home or self-care (01) ==
LOC: ER 19:55
DX: R21 Rash and other nonspecific skin eruption (principal); R10.2 Pelvic and perineal pain; R30.9 Painful micturition, unspecified
CPT/HCPCS: 81001; 87086; 99283

== ENCOUNTER 2018-08-06 06:21 | Emergency (ER) | payer BC ==
[2018-08-06 06:28] VITALS: BP 124/78
[2018-08-06 07:50] LABS: APPEARANCE,URINE CLEAR; BILIRUBIN,URINE NEGATIVE (NEGATIVE); COLOR,URINE YELLOW; GLUCOSE, URINE NEGATIVE (NEGATIVE); KETONES,URINE NEGATIVE (NEGATIVE); LEUKOCYTE ESTERASE,URINE NEGATIVE (NEGATIVE); NITRITE,URINE NEGATIVE (NEGATIVE); PROTEIN,URINE NEGATIVE (NEGATIVE); URINE SPECIFIC GRAVITY 1.012; UROBILINOGEN,URINE NEGATIVE mg/dL (<2.0)
--- NOTE | 2018-08-06 08:55 | ER Document Report ---
ED General - General Chief Complaint: Vaginal Pain Stated Complaint: VAGINAL PAIN Time Seen by Provider: 08/06/18 06:45 Mode of Arrival: Ambulatory Information source: Patient TRAVEL OUTSIDE OF THE [place] IN LAST 30 DAYS: No - HPI Onset: Other - 33-year-old otherwise healthy female who presents for evaluation of vaginal itching. She notes that she has had vaginal itching for the past week or so, previously she had had issues with vaginitis as well as allergic reactions to soaps in her vulva. She is not taking anything to try and help with this nothing is made it better or worse. She denies any fevers, chills, or other symptoms. Denies any previous change in sexual partners, denies any pelvic pain, denies any back pain, denies any pelvic discharge. - Related Data Allergies/Adverse Reactions: No Known Allergies Allergy (Verified 08/06/18 07:01) Past Medical History - General Information source: Patient - Social History Smoking Status: Never Smoker Family History: DM, Hypertension. denies: Arthritis, CAD, COPD, CVA, Hyperlipidemia, Malignancy, Thyroid Disfunction Patient has suicidal ideation: No Patient has homicidal ideation: No Renal/ Medical History: Denies: Hx Peritoneal Dialysis Past Surgical History: Reports: Hx Section - Immunizations Immunizations up to date: Yes Hx Diphtheria, Pertussis, Tetanus Vaccination: Yes Review of Systems - Review of Systems -: Yes All other systems reviewed and negative Physical Exam - Vital signs Vitals: Temp Pulse Resp BP Pulse Ox 98.7 F 84 18 124/78 100 08/06/18 06:22 08/06/18 06:22 08/06/18 06:22 08/06/18 06:22 08/06/18 06:22 Interpretation: Normal - General General appearance: Appears well, Alert - HEENT Head: Normocephalic, Atraumatic Eyes: Normal Pupils: PERRL - Respiratory Respiratory status: No respiratory distress Chest status: Nontender Breath sounds: Normal Chest palpation: Normal - Cardiovascular Rhythm: Regular Heart sounds: Normal auscultation Murmur: No - Abdominal Inspection: Normal Distension: No distension Bowel sounds: Normal Tenderness: Nontender Organomegaly: No organomegaly - Genitourinary External exam: Other - Slight thinning of the skin externally with some irratation - Back Back: Normal, Nontender - Extremities General upper extremity: Normal inspection, Nontender, Normal color, Normal ROM, Normal temperature General lower extremity: Normal inspection, Nontender, Normal color, Normal ROM, Normal temperature, Normal weight bearing. No: Juan Jose's sign - Neurological Neuro grossly intact: Yes Cognition: Normal Orientation: AAOx4 Rosalinda Coma Scale Eye Opening: Spontaneous Dubois Coma Scale Verbal: Oriented Dubois Coma Scale Motor: Obeys Commands Dubois Coma Scale Total: 15 Speech: Normal Motor strength normal: LUE, RUE, LLE, RLE Sensory: Normal - Psychological Associated symptoms: Normal affect, Normal mood - Skin Skin Temperature: Warm Skin Moisture: Dry Skin Color: Normal Course - Re-evaluation Re-evalutation: 33-year-old female presents for evaluation of vaginal irritation and itching. With a director religious education in the room externally evaluated the patient's vagina, there is a slight irritation and erythema externally consistent with potential yeast. Will obtain dirty urine for GC and chlamydia. We will plan for this patient to undergo urinalysis as well. Urinalysis unremarkable, GC chlamydia negative, will plan for this patient undergo treatment for yeast presumptively with Diflucan. She is been given a second tablet as well in case she does not have response. She was also given return precautions expect management, do not believe this represents more serious underlying cause of vaginal irritation such as but not limited to PID or ovarian torsion or otherwise. - Vital Signs Vital signs: Temp Pulse Resp BP Pulse Ox 98.7 F 84 18 124/78 100 08/06/18 06:22 18 06:22 08/06/18 06:22 08/06/18 06:22 08/06/18 06:22 Discharge - Discharge Clinical Impression: Vulvovaginal itching Condition: Good Disposition: HOME, SELF-CARE Instructions: Vaginitis ([facility]) Additional Instructions: You were seen today in the emergency department for your vaginal irritation. You had an evaluation including a physical exam as well as tests of your urine. It is possible that you have vaginal dryness and irritation of the skin that could be caused by yeast. You have been given a medication to use to try and help clear this up. Make sure that you are not wearing any tight fitting or irritating underwear. Use the medication as prescribed only once and then in another 3 days if it does not improve your symptoms. Follow-up with your primary physician if you do not see improvement in the coming days. 2 of the tests, one for gonorrhea and 1 for chlamydia will not come back for some time if these are positive you will be called for treatment. Prescriptions: Fluconazole [Diflucan 100 Mg Tablet] 100 mg PO DAILY #2 tablet Referrals: REECE ROWELL MD [Primary Care Provider] - Follow up as needed
[2018-08-06 09:20] LABS: CHLAM PCR NOT DETECTED (NOT DETECT); GON PCR NOT DETECTED (NOT DETECT)
== END 2018-08-06 09:16 | disposition home or self-care (01) ==
LOC: ER 06:21
DX: L29.2 Pruritus vulvae (principal); R10.2 Pelvic and perineal pain
CPT/HCPCS: 81001; 81025; 87491; 87591; 99283

== ENCOUNTER 2018-09-26 18:56 | Emergency (ER) | payer BC ==
--- NOTE | 2018-09-26 19:53 | ER Document Report ---
HPI - HPI Time Seen by Provider: 09/26/18 19:38 Pain Level: 4 Notes: Patient is a 33-year-old female who presents to the emergency department complaining of a pruritic rash to her lower back over the last several days. Patient has not had any associated pain or purulent discharge. Denies drug allergies. No known exposure to new chemicals, detergents, soaps, plants. No new foods or clothing. She does not take any medicines daily. She has been eating and drinking without difficulty. She is urinating normally and having normal bowel movements. Denies any headache, fever, neck pain, URI, sore throat, chest pain, palpitations, syncope, cough, shortness of breath, wheeze, dyspnea, abdominal pain, nausea/vomiting/diarrhea, urinary retention, dysuria, hematuria, loss of control of bowel or bladder, numbness/tingling, saddle anesthesia, muscle paralysis/weakness. - ROS Systems Reviewed and Negative: Yes All other systems reviewed and negative - REPRODUCTIVE Reproductive: DENIES: : Past Medical History - Social History Smoking Status: Never Smoker Family History: DM, Hypertension. denies: Arthritis, CAD, COPD, CVA, Hyperlipidemia, Malignancy, Thyroid Disfunction Renal/ Medical History: Denies: Hx Peritoneal Dialysis Past Surgical History: Reports: Hx Section - Immunizations Immunizations up to date: Yes Hx Diphtheria, Pertussis, Tetanus Vaccination: Yes Vertical Provider Document - CONSTITUTIONAL Agree With Documented VS: Yes Notes: PHYSICAL EXAMINATION: GENERAL: Well-appearing, well-nourished and in no acute distress. HEAD: Atraumatic, normocephalic. EYES: Pupils equal round and reactive to light, extraocular movements intact, sclera anicteric, conjunctiva are normal. ENT: Nares patent and without discharge. oropharynx clear without exudates. No tonsilar hypertrophy or erythema. Moist mucous membranes. NECK: Normal range of motion, supple without lymphadenopathy LUNGS: Breath sounds clear to auscultation bilaterally and equal. No wheezes rales or rhonchi. HEART: Regular rate and rhythm without murmurs, rubs, gallops. ABDOMEN: Soft, nontender, nondistended abdomen. No guarding, no rebound. Normal bowel sounds present. No CVA tenderness bilaterally. Musculoskeletal: FROM to passive/active. Strength 5+/5. Extremities: No cyanosis, clubbing, or edema b/l. Peripheral pulses 2+. Capillary refill less than 3 seconds. NEUROLOGICAL: Normal speech, normal gait. PSYCH: Normal mood, normal affect. SKIN: Dry maculopapular rash noted to the low back that does cross the midline. Nontender to palpation without any fluctuance or induration. No streaking or purulence. Some scabbing noted from where she has been scratching. - INFECTION CONTROL TRAVEL OUTSIDE OF THE [place] IN LAST 30 DAYS: No Course - Re-evaluation Re-evalutation: 09/26/18 19:51 Patient is an afebrile, well-hydrated, 33-year-old female who presents to the emergency department with a nonspecific skin rash that is pruritic. Vitals are acceptable without significant tachycardia, tachypnea, or hypoxia. PE is otherwise unremarkable. She is nontoxic-appearing and is tolerating p.o. without difficulty. No labs or imaging warranted at this time. It does not appear to be bacterial or cellulitic. No incision and drainage is warranted. Low suspicion for any SJS, necrotizing fasciitis, SSS, toxic shock, sepsis, meningitis, or other systemic emergent condition at this time. Patient is aware that this condition can change and she needs to monitor symptoms for any acute changes and seek medical attention if so. I will sent home with a prescription for Lotrisone cream. Conservative measures otherwise for symptoms. Recheck with your PCM in 2-3 days. Return to the ED with any other worsening/concerning symptoms as reviewed. Patient is in agreement. - Vital Signs Vital signs: Temp Pulse Resp BP Pulse Ox 97.9 F 100 16 122/74 96 09/26/18 19:14 09/26/18 19:14 09/26/18 19:14 09/26/18 19:14 09/26/18 19:14 Discharge - Discharge Clinical Impression: Rash and nonspecific skin eruption Condition: Stable Disposition: HOME, SELF-CARE Additional Instructions: Keep the skin clean and dry Wash with soap and water Tylenol/ibuprofen if needed Triple antibiotic ointment daily Take medication as directed Monitor for any worsening symptoms Recheck with your PCM in 2-3 days Return to the ED with any worsening symptoms and/or development of fever, headache, chest pain, palpitations, syncope, shortness of breath, trouble breathing, abdominal pain, n/v/d, abscess, purulent discharge, red streaks, worsening swelling, or other worsening symptoms that are concerning to you. Prescriptions: Clotrimazole/Betamethasone Dip [Lotrisone Cream 15 gm] 1 applic TP BID #15 g Referrals: REECE ROWELL MD [Primary Care Provider] - Follow up as needed
[2018-09-26 20:14] VITALS: BP 112/68
== END 2018-09-26 20:16 | disposition home or self-care (01) ==
LOC: ER 18:56
DX: R21 Rash and other nonspecific skin eruption (principal)
CPT/HCPCS: 99282

== ENCOUNTER 2018-11-17 10:58 | Emergency (ER) | payer BC ==
[2018-11-17] MEDS ORDERED: ONDANSETRON 4 MG TAB.RAPDIS PO ONE (11:32)
--- NOTE | 2018-11-17 11:33 | ER Document Report ---
ED GI/ - General Chief Complaint: Vomiting/Diarrhea Stated Complaint: VOMITING Time Seen by Provider: 11/17/18 11:29 Primary Care Provider: REECE ROWELL MD [NO LOCAL MD] - Follow up as needed Mode of Arrival: Ambulatory Information source: Patient Notes: Patient is an otherwise healthy 33-year-old female who presents the ED with complaints of nausea, vomiting and diarrhea that started at approximately 2 AM. Patient reports multiple family members sick with similar symptoms. Patient denies any abdominal pain. Patient reports she has vomited approximately 4 t imes and has had 3 episodes of diarrhea. Patient vital signs are within normal limits TRAVEL OUTSIDE OF THE [place] IN LAST 30 DAYS: No - Related Data Allergies/Adverse Reactions: No Known Allergies Allergy (Verified 11/17/18 10:58) Past Medical History - General Information source: Patient - Social History Smoking Status: Never Smoker Frequency of alcohol use: None Drug Abuse: None Family History: DM, Hypertension. denies: Arthritis, CAD, COPD, CVA, Hyperlipidemia, Malignancy, Thyroid Disfunction - Medical History Medical History: Negative Renal/ Medical History: Denies: Hx Peritoneal Dialysis Past Surgical History: Reports: Hx Section - Immunizations Immunizations up to date: Yes Hx Diphtheria, Pertussis, Tetanus Vaccination: Yes Review of Systems - Review of Systems Constitutional: No symptoms reported EENT: No symptoms reported Cardiovascular: No symptoms reported Respiratory: No symptoms reported Gastrointestinal: Diarrhea, Nausea, Vomiting. denies: Abdominal pain Genitourinary: No symptoms reported Female Genitourinary: No symptoms reported Musculoskeletal: No symptoms reported Skin: No symptoms reported Hematologic/Lymphatic: No symptoms reported Neurological/Psychological: No symptoms reported Physical Exam - Vital signs Vitals: Temp Pulse Resp BP Pulse Ox 98.8 F 90 16 132/78 H 100 11/17/18 11:08 11/17/18 11:08 11/17/18 11:08 11/17/18 11:08 11/17/18 11:08 - Notes Notes: PHYSICAL EXAMINATION: GENERAL: Well-appearing, well-nourished and in no acute distress. HEAD: Atraumatic, normocephalic. EYES: Pupils equal round and reactive to light, extraocular movements intact, conjunctiva are normal. ENT: Nares patent, oropharynx clear without exudates. Moist mucous membranes. NECK: Normal range of motion, supple without lymphadenopathy LUNGS: Breath sounds clear to auscultation bilaterally and equal. No wheezes rales or rhonchi. HEART: Regular rate and rhythm without murmurs ABDOMEN: Soft, nontender, nondistended abdomen. No guarding, no rebound. No masses appreciated. Female : deferred Musculoskeletal: Normal range of motion, no pitting or edema. No cyanosis. NEUROLOGICAL: Cranial nerves grossly intact. Normal speech, normal gait. Normal sensory, motor exams PSYCH: Normal mood, normal affect. SKIN: Warm, Dry, normal turgor, no rashes or lesions noted. Course - Re-evaluation Re-evalutation: Patient appears well, nontoxic is alert and oriented. Abdomen is soft, nontender with no guarding no rebound. Patient denies any abdominal pain. Patient will be given Zofran and then p.o. trial. Patient has multiple family members with similar symptoms, this is likely gastroenteritis. Patient states she feels improved after taking the Zofran. Patient has held down 20 ounces of fluid For well over an hour now. Patient's abdomen reassessment reassessed and continues to be soft and nontender. Patient will be discharged home in stable condition. - Vital Signs Vital signs: Temp Pulse Resp BP Pulse Ox 98.7 F 89 16 136/77 H 100 11/17/18 13:27 11/17/18 13:27 11/17/18 13:27 11/17/18 13:27 11/17/18 13:27 Discharge - Discharge Clinical Impression: Nausea vomiting and diarrhea Condition: Stable Disposition: HOME, SELF-CARE Additional Instructions: VOMITING: Vomiting (or nausea without vomiting) can be caused by many other different problems. It can mean that something's wrong with the stomach, such as ulcers or inflammation or the intestinal tract, such as appendicitis. But it can also be a symptom of a problem that has nothing to do with the stomach or intestines. Vomiting is common with severe headaches, earaches, tonsillitis, and kidney infections, etc. We see it with pneumonia or heart attacks. Drugs can cause nausea and vomiting. Many abdominal problems cause vomiting; for example, gallstones, kidney stones, pancreatitis, and intestinal obstruction (blocked bowels). In most cases, curing the vomiting depends on fixing the problem that caused it. For temporary relief, we may use an anti-nausea medicine. For home use, we can prescribe suppositories, chewable pills, pills that dissolve in the mouth, or liquid anti-nausea drugs. If the vomiting seems to be caused by a problem in the stomach, acid-suppressing drugs may be prescribed as well. It's important to avoid dehydration. Sip small amounts of clear liquids (soft drinks, tea, broth, etc) . Try to take fluids frequently even if you are vomiting to prevent dehydration. Take increasing amounts of fluid and when liquids are being consumed successfully, advance to small amounts of bland food (toast, soups, mashed potatoes, etc.) until you are able to resume a regular diet. Avoid aspirin, tobacco, and alcohol. If the vomiting worsens, if the problem that's making you vomit worsens, or if there's evidence of bleeding in the stomach (such as black, tarry stool, or bloody or black vomit), you should return immediately. Also, return if abdominal pain worsens or becomes localized to one area or you develop high fever. Call your doctor if you aren't improved in 24 hours. DIARRHEA, NON-SPECIFIC: Diarrhea means frequent, watery stools. There are many causes. Any problem that keeps the intestinal tract from absorbing water from the stool can lead to diarrhea. A sudden new diarrhea problem is usually caused by a virus, food sensitivity, toxic bacteria, or drugs. In this case, we expect the problem to go away soon. Testing is done only if you seem seriously ill from the diarrhea. If you have chronic diarrhea, or diarrhea that keeps coming back, we need to find out why. Chronic diarrhea can be due to inflammation of the bowels such as Crohn's disease or ulcerative colitis, food sensitivity such as intolerance to lactose or wheat protein, irritable bowel syndrome, and other problems. If your diarrhea is a significant problem but it's not clear why you have it, we'll refer you to a specialist for further testing. During an episode of diarrhea, drink small amounts (two to six ounces) of clear liquids (soft drinks, sport drinks, herb teas, broth, etc). Take fluids frequently to prevent dehydration. It's usually not a problem to take mild anti- diarrhea medication such as Kaopectate or Pepto-Bismol. As the diarrhea eases, advance to small amounts of bland food (mashed potato, toast) for 24 hours. Call the physician if blood appears in your vomit or stool, if vomiting lasts longer than 24 hours, if the abdominal pain worsens or becomes localized t o one area, if you develop high fever, or if you become lightheaded and weak. VIRAL SYNDROME: The physician has diagnosed a viral infection. Viruses not only cause "colds," but can cause many different symptoms including generalized aching, fever, headache, cough, diarrhea, nausea, vomiting, and fatigue. The treatment, for the most part, is simply relief of symptoms. This means that antibiotics are usually not given. Rest, fluids, pain medications and, occasionally, medication for the specific symptoms that are most bothersome will be prescribed. Use good handwashing to avoid passing the virus to others. Shared toys should be cleaned with disinfectant. Clean the toilets, sinks, and counter surfaces in bathrooms. Launder clothing in hot water. Contact the physician if you develop any new or unusual symptoms such as severe headache, stiff neck, high fever, chest pain, productive cough, or shortness of breath. You should be rechecked if you don't see marked improvement within seven to 10 days. ANTINAUSEA MEDICATION: You have been given a medication to suppress nausea and vomiting. This type of medication can be given as a shot, pill, or suppository. It will usually last for many hours. Pills and shots usually last six to eight hours. For the typical illness, only one or two doses of the medication may be necessary. Mild lightheadedness may occur. This type of medicine can cause drowsiness. Do not drive or operate dangerous machinery while under its influence. Do not mix with alcohol. See your doctor at once if you have muscle spasms or tightness, or uncontrollable motions (particularly of the neck, mouth, or jaw). Persistent vomiting or severe lightheadedness should also be evaluated by the physician. FOLLOW-UP CARE: If you have been referred to a physician for follow-up care, call the physicians office for an appointment as you were instructed or within the next two days. If you experience worsening or a significant change in your symptoms, notify the physician immediately or return to the Emergency Department at any time for re-evaluation. Please take nausea medication as prescribed. Please allow the diarrhea to run its course. If you continue to have diarrhea for 5 days we would consider having you take an antidiarrheal medication such as Imodium. Please return to the emergency department if you develop abdominal pain, worsening symptoms such as fever or persistent vomiting despite taking the nausea medication. We are happy to reevaluate you at any time. Prescriptions: Ondansetron [Zofran Odt 4 mg Tablet] 1 - 2 tab PO Q4H PRN #15 tab.rapdis PRN Reason: For Nausea/Vomiting Forms: Return to Work Referrals: REECE ROWELL MD [NO LOCAL MD] - Follow up as needed
[2018-11-17 13:35] VITALS: BP 136/77
== END 2018-11-17 13:27 | disposition home or self-care (01) ==
LOC: ER 10:58
DX: R11.2 Nausea with vomiting, unspecified (principal); R19.7 Diarrhea, unspecified
CPT/HCPCS: 99283; S0119

== ENCOUNTER 2019-07-17 15:21 | Emergency (ER) | payer SELFPAY ==
[2019-07-17] MEDS ORDERED: ONDANSETRON 4 MG TAB.RAPDIS PO ONE (15:41)
[2019-07-17] MEDS ORDERED: OXYCODONE-ACETAMINOPHEN 5-325 MG TABLET PO ONE (15:41)
[2019-07-17] MEDS ORDERED: DIPH/PERTUSS(ACELL)/TETANUS VAC/PF 0.5 ML SYR (>=10YO) IM ONE (15:41)
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
[2019-07-17] MEDS ORDERED: LIDOCAINE 1%/EPINEPHRINE INJ 20 ML VIAL INJ ONE (16:01)
[2019-07-17] MEDS ORDERED: CEFAZOLIN 1 GM/D5W RTU 1 GM/50 ML RTUPB IV ONE (16:29)
[2019-07-17] MEDS ORDERED: HYDROCODONE/ACETAMINOPHEN 5-325 MG (6 TAB/ER DISP) PO PRN (17:34)
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
[2019-07-17 18:48] VITALS: BP 118/71
== END 2019-07-17 18:48 | disposition home or self-care (01) ==
LOC: ER 15:21
PROC: 0HQCXZZ Repair Left Upper Arm Skin, External Approach (ICD-10-PCS; principal; 2019-07-17)
DX: S41.112A Laceration without foreign body of left upper arm, initial encounter (principal); X99.9XXA Assault by unspecified sharp object, initial encounter; Z87.891 Personal history of nicotine dependence
CPT/HCPCS: 99284; 90471; 73060; 90715; 12001; J0690; S0119; J3490

== ENCOUNTER 2019-07-29 08:15 | Emergency (ER) | payer SELFPAY ==
[2019-07-29 08:19] VITALS: BP 127/71
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
== END 2019-07-29 09:34 | disposition home or self-care (01) ==
LOC: ER 08:15
DX: T14.8XXD Other injury of unspecified body region, subsequent encounter (principal); W26.0XXD Contact with knife, subsequent encounter
CPT/HCPCS: 99281

== ENCOUNTER 2020-01-10 09:20 | Emergency (ER) | payer SELFPAY ==
[2020-01-10 09:51] LABS: APPEARANCE,URINE CLEAR; BILIRUBIN,URINE NEGATIVE (NEGATIVE); COLOR,URINE STRAW; GLUCOSE, URINE NEGATIVE (NEGATIVE); KETONES,URINE NEGATIVE (NEGATIVE); PROTEIN,URINE NEGATIVE (NEGATIVE); URINE SPECIFIC GRAVITY 1.003; UROBILINOGEN,URINE NEGATIVE mg/dL (<2.0)
[2020-01-10] MEDS ORDERED: NORMAL SALINE 1000 ML 1,000 ML IV ONE (10:20)
[2020-01-10] MEDS ORDERED: ACETAMINOPHEN 325 MG TABLET PO ONE (10:22)
[2020-01-10 10:44] LABS: BACTERIA (WET MOUNT) 4+ BACTERIA SEEN; EPITHELIALS (WET MOUNT) 4+ EPITHELIALS SEEN; T.VAGINALIS (WET MOUNT) NO TRICHOMONAS SEEN; WBCS (WET MOUNT) FEW WBCS SEEN; YEAST (WET MOUNT) NO YEAST SEEN
[2020-01-10 10:46] LABS: ABSOLUTE LYMPHOCYTES (AUTO) 1.5 10^3/uL (0.5-4.7); ABSOLUTE MONOCYTES (AUTO) 0.7 10^3/uL (0.1-1.4); ABSOLUTE NEUT (AUTO) 2.7 10^3/uL (1.7-8.2); BASOPHILS % (AUTO) 0.5 % (0-2); EOSINOPHILS % (AUTO) 0.5 % (0-6); HEMATOCRIT 31.7 % (36.0-47.0); LYMPHOCYTES % (AUTO) 30.2 % (13-45); MEAN CORPUSCULAR HEMOGLOBIN 19.7 pg (27.0-33.4); MEAN CORPUSCULAR HGB CONC 31.6 g/dL (32.0-36.0); MONOCYTES % (AUTO) 14.1 % (3-13); PLATELET COUNT 263 10^3/uL (150-450); RED BLOOD COUNT 5.09 10^6/uL (3.72-5.28); RED CELL DISTRIBUTION WIDTH 18.7 % (11.5-14.0); SEGMENTED NEUTROPHILS % (AUTO) 54.7 % (42-78); TOTAL CELLS COUNTED % (AUTO) 100 %; WHITE BLOOD COUNT 4.9 10^3/uL (4.0-10.5)
[2020-01-10 10:57] LABS: MEAN CORPUSCULAR VOLUME 62 fl (80-97)
[2020-01-10 10:59] LABS: ALKALINE PHOSPHATASE 77 U/L (38-126); ANION GAP 9 (5-19); ASPARTATE AMINO TRANSFERASE 20 U/L (14-36); BILIRUBIN,TOTAL 0.5 mg/dL (0.2-1.3); BLOOD UREA NITROGEN 6 mg/dL (7-20); CALCIUM 8.8 mg/dL (8.4-10.2); CARBON DIOXIDE 24 mmol/L (22-30); CHLORIDE 102 mmol/L (98-107); GLUCOSE 100 mg/dL (75-110); TOTAL PROTEIN 7.2 g/dL (6.3-8.2)
[2020-01-10 11:07] LABS: ANISOCYTOSIS 2+; PLATELET COMMENT ADEQUATE
[2020-01-10 11:08] LABS: HYPOCHROMASIA SLIGHT; OVALOCYTES SLIGHT
[2020-01-10 12:12] LABS: CHLAM PCR NOT DETECTED (NOT DETECT)
--- NOTE | 2020-01-10 14:25 | ER Document Report ---
ED General - General Chief Complaint: Fever Stated Complaint: FEVER Time Seen by Provider: 01/10/20 09:47 Primary Care Provider: [facility] [Provider Group] - Follow up as needed TRAVEL OUTSIDE OF THE [place] IN LAST 30 DAYS: No - HPI Context: Patient is 34-year-old female who presents emergency department with a chief complaint of fever. She states that her fever started yesterday. She has not taken anything for her. She also reports that she has vaginal discharge. States that it is yellow/green in color. Patient is sexually active. She denies any new soaps, but states that she started using a new laundry detergent. She states that she normally uses unscented laundry detergent, but states that she used a scented laundry soap recently. She denies any past medical history. She does not take any medications. She also reports associated weakness and low back pain. Denies any dysuria, hematic area, or any other symptoms. Denies any cough, shortness of breath, difficulty breathing. Denies any exposure to anybody that was positive for COVID-19. She does not suspect she is . - Related Data Allergies/Adverse Reactions: No Known Allergies Allergy (Verified 07/29/19 08:35) Past Medical History - Social History Smoking Status: Never Smoker Chew tobacco use (# tins/day): No Frequency of alcohol use: None Drug Abuse: None Family History: DM, Hypertension Patient has homicidal ideation: No Renal/ Medical History: Denies: Hx Peritoneal Dialysis Past Surgical History: Reports: Hx Section - Immunizations Immunizations up to date: Yes Hx Diphtheria, Pertussis, Tetanus Vaccination: Yes Review of Systems - Review of Systems Notes: REVIEW OF SYSTEMS: CONSTITUTIONAL : Denies recent unintentional weight loss. See HPI. EENT: Denies eye, ear, throat, or mouth pain, discharge, or symptoms. Denies nasal or sinus congestion. CARDIOVASCULAR: Denies chest pain. RESPIRATORY: Denies shortness of breath, cough, congestion, difficulty breathing, or wheezing. GASTROINTESTINAL: Denies nausea, vomiting, and diarrhea. Denies abdominal pain. Denies constipation. Last BM: GENITOURINARY: Denies difficulty urinating, burning, blood in urine, urgency or frequency. FEMALE GENITOURINARY:See HPI MUSCULOSKELETAL: See HPI. Denies joint pain or swelling. SKIN: Denies rash, itchiness, or lesions HEMATOLOGIC : Denies easy bruising or bleeding. LYMPHATIC: Denies swollen, painful, enlarged glands. NEUROLOGICAL: Denies no numbness or tingling. Denies headache. Denies altered mental status. Denies alteration in speech. See HPI. PSYCHIATRIC: Denies stress, anxiety, alteration in sleep patterns, or de pression. All other systems reviewed and negative. Physical Exam - Vital signs Vitals: Temp 99.3 F 01/10/20 09:21 - Notes Notes: PHYSICAL EXAMINATION: GENERAL: Appears well, healthy, well-nourished, no acute distress. HEAD: Normocephalic, atraumatic. EYES: PERRL, conjunctiva normal, all extraocular movements intact, sclera nonicteric ENT: Moist mucous membranes. NECK: Supple, no noticeable swelling, redness, rash. Normal range of motion. LUNGS: Equal breath sounds bilaterally and clear to auscultation. No wheezes rales or rhonchi. CARDIOVASCULAR: S1-S2, regular rate, regular rhythm. Radial pulses 2+, normal. ABDOMEN: Normoactive bowel sounds. Soft, nontender, no guarding, no rebound tenderness, and no masses palpated. EXTREMITIES: Normal strength and range of motion, no pitting or edema. No cyanosis. NEUROLOGICAL: Moves all extremities upon command. Strength 5/5 in all extremities. PSYCH: Normal mood, normal affect. SKIN: Warm, dry. No rash, lesions, ulcerations noted. Normal skin turgor. REPRODUCTIVE: Yellow discharge noted in vaginal canal. Cervical motion tenderness noted. No adnexal tenderness noted. Course - Re-evaluation Re-evalutation: 01/10/20 Anderia, PCT at bedside for pelvic exam. Small amount of yellow discharge noted. Wet mount and gonorrhea and chlamydia will be sent. Patient does have cervical motion tenderness. No adnexal tenderness noted. No bleeding noted. Cervical os is closed. 01/10/20 4+ epithelial cells with 4+ bacteria noted on the wet mount. No trichomonas or yeast noted. There are some WBCs noted on her wet mount. Urinalysis shows a moderate of leukocytes, this is most likely due to her having vaginal discharge. Urine culture will be sent. Chemistries are unremarkable. Hematology shows an anemia with a hemoglobin of 10.0 and hematocrit of 31.7. This is chronic. Patient is not having any vaginal bleeding. Patient will be treated for pelvic inflammatory disease, as she has cervical motion tenderness. She is in agreement with this plan. She will follow-up with DI[facility]ES TERRITORY MANAGER in regards to this visit. Follow-up precautions were given. Verbal discharge instructions were given to the patient. They verbalized understanding. They are stable for discharge. - Vital Signs Vital signs: Temp Pulse Resp BP Pulse Ox 98.0 F 72 16 117/70 99 01/10/20 14:47 01/10/20 14:47 01/10/20 14:47 01/10/20 14:47 01/10/20 14:47 - Laboratory Result Diagrams: 01/10/20 10:30 01/10/20 10:30 Laboratory results interpreted by me: 01/10/20 01/10/20 01/10/20 09:30 10:30 10:30 Hgb 10.0 L Hct 31.7 L MCV 62 L MCH 19.7 L MCHC 31.6 L RDW 18.7 H [place] % (Auto) 14.1 H Sodium 135.4 L BUN 6 L Urine Blood SMALL H Leukocyte Esterase Rfl MODERATE H Discharge - Discharge Clinical Impression: PID (acute pelvic inflammatory disease), Bacterial vaginosis Fever Qualifiers: Fever type: unspecified Qualified Code(s): R50.9 - Fever, unspecified Condition: Stable Disposition: HOME, SELF-CARE Additional Instructions: Your are being treated for pelvic inflammatory disease. You are being started on 2 different antibiotics and you need to take these until you finish them. Please return if you have worsening pain, persistent vomiting, spike a fever greater than 101F, or have any other symptoms that are concerning to you. Please follow closely with you primary care physician or your AUDIO VISUAL AIDE at your earliest ability. Make sure you use unscented laundry soap. Prescriptions: Doxycycline Hyclate 100 mg PO BID #28 tablet. Metronidazole [Flagyl 500 mg Tablet] 500 mg PO Q6H #28 tablet Forms: Return to Work Referrals: [facility] [Provider Group] - Follow up as needed
[2020-01-10 14:51] VITALS: BP 117/70
[2020-01-11 11:59] LABS: PATH REVIEW PATHOLOGIST REVIEWED
== END 2020-01-10 14:54 | disposition home or self-care (01) ==
LOC: ER 09:20
DX: N73.9 Female pelvic inflammatory disease, unspecified (principal); N76.0 Acute vaginitis; B96.89 Other specified bacterial agents as the cause of diseases classified elsewhere; R50.9 Fever, unspecified; D64.9 Anemia, unspecified; R53.1 Weakness; M54.5 Low back pain
CPT/HCPCS: 36415; 80053; 81001; 85025; 87086; 87088; 87210; 87491; 87591; 99283

== ENCOUNTER 2020-04-10 22:13 | Emergency (ER) | payer BC ==
--- NOTE | 2020-04-10 23:45 | ER Document Report ---
ED Medical Screen (RME) - General Chief Complaint: Abdominal Pain Stated Complaint: STOMACH PAIN Notes: Patient is a 34-year-old -Citizen Of [place] female with no significant past medical history presents to the emergency department with a chief complaint of abdominal pain that began 2 to 3 days ago. States it involves the entire abdomen and radiates straight through to the entire back. States this been associated with decreased bowel movements. Reports she is not had a good bowel movement in over a week. Reports that she has had some darker colored urine than normal as well. She denies any nausea or vomiting. No diarrhea. No recent travel or known sick contacts. I have treated and performed a rapid initial assessment of this patient. A comprehensive ED assessment and evaluation of the patient, analysis of test results and completion of medical decision making process will be conducted by additional ED providers. PHYSICAL EXAMINATION: GENERAL: Well-appearing, well-nourished and in no acute distress. A&Ox4. Answers questions appropriately. TRAVEL OUTSIDE OF THE [place] IN LAST 30 DAYS: No - Related Data Allergies/Adverse Reactions: No Known Allergies Allergy (Verified 07/29/19 08:35) Past Medical History Renal/ Medical History: Denies: Hx Peritoneal Dialysis Past Surgical History: Reports: Hx Section - Immunizations Immunizations up to date: Yes Hx Diphtheria, Pertussis, Tetanus Vaccination: Yes Physical Exam - Vital signs Vitals: Temp Pulse Resp BP Pulse Ox 98.3 F 80 16 125/71 100 04/10/20 23:00 04/10/20 23:00 04/10/20 23:00 04/10/20 23:00 04/10/20 23:00 Course - Vital Signs Vital signs: Temp Pulse Resp BP Pulse Ox 98.3 F 80 16 125/71 100 04/10/20 23:00 04/10/20 23:00 04/10/20 23:00 04/10/20 23:00 04/10/20 23:00
--- NOTE | 2020-04-11 01:15 | RADIOLOGY REPORT (SQ) ---
EXAM DESCRIPTION: RadLex: XR ABDOMEN 1 VIEW (KUB) CLINICAL HISTORY: 34 years Female; abd pain; COMPARISON: None. FINDINGS: There is moderate diffuse colonic fecal retention. No significant distention. No small bowel distention. No pneumatosis. No suspicious calcifications. Bony structures are unremarkable. IMPRESSION: 1. No acute abdominal findings.
[2020-04-11 01:27] LABS: APPEARANCE,URINE CLEAR; BILIRUBIN,URINE NEGATIVE (NEGATIVE); COLOR,URINE YELLOW; GLUCOSE, URINE NEGATIVE (NEGATIVE); KETONES,URINE NEGATIVE (NEGATIVE); PROTEIN,URINE NEGATIVE (NEGATIVE); URINE SPECIFIC GRAVITY 1.025
[2020-04-11 01:32] LABS: ABSOLUTE BASOPHILS # (AUTO) 0.1 10^3/uL (0.0-0.2); ABSOLUTE EOSINOPHILS # (AUTO) 0.2 10^3/uL (0.0-0.6); ABSOLUTE MONOCYTES (AUTO) 0.7 10^3/uL (0.1-1.4); ALBUMIN 3.9 g/dL (3.5-5.0); ALKALINE PHOSPHATASE 95 U/L (38-126); ANION GAP 9 (5-19); ASPARTATE AMINO TRANSFERASE 25 U/L (14-36); BASOPHILS % (AUTO) 1.2 % (0-2); BILIRUBIN,DIRECT 0.2 mg/dL (0.0-0.4); BILIRUBIN,TOTAL 0.4 mg/dL (0.2-1.3); BLOOD UREA NITROGEN 8 mg/dL (7-20); CALCIUM 8.8 mg/dL (8.4-10.2); CARBON DIOXIDE 23 mmol/L (22-30); CHLORIDE 106 mmol/L (98-107); EOSINOPHILS % (AUTO) 3.2 % (0-6); GLUCOSE 102 mg/dL (75-110); HEMATOCRIT 30.6 % (36.0-47.0); HEMOGLOBIN 9.4 g/dL (12.0-15.5); LYMPHOCYTES % (AUTO) 50.3 % (13-45); MEAN CORPUSCULAR HEMOGLOBIN 19.5 pg (27.0-33.4); MEAN CORPUSCULAR HGB CONC 30.7 g/dL (32.0-36.0); MONOCYTES % (AUTO) 11.1 % (3-13); PLATELET COUNT 281 10^3/uL (150-450); POTASSIUM 4.3 mmol/L (3.6-5.0); RED BLOOD COUNT 4.83 10^6/uL (3.72-5.28); RED CELL DISTRIBUTION WIDTH 19.1 % (11.5-14.0); SEGMENTED NEUTROPHILS % (AUTO) 34.2 % (42-78); TOTAL CELLS COUNTED % (AUTO) 100 %; TOTAL PROTEIN 6.9 g/dL (6.3-8.2); WHITE BLOOD COUNT 5.9 10^3/uL (4.0-10.5)
[2020-04-11 01:59] LABS: ANISOCYTOSIS 2+; HYPOCHROMASIA SLIGHT; TOXIC GRANULATION SLIGHT; TOXIC VACUOLATION PRESENT
[2020-04-11 02:00] LABS: BURR CELLS SLIGHT; MEAN CORPUSCULAR VOLUME 63 fl (80-97); OVALOCYTES SLIGHT; PLATELET COMMENT ADEQUATE; POLYCHROMASIA SLIGHT
[2020-04-11 02:49] VITALS: BP 123/67
[2020-04-11] MEDS ORDERED: ONDANSETRON ODT 4 MG TAB (6 TAB/ER DISP) PO PRN (03:33)
[2020-04-11] MEDS ORDERED: MAGNESIUM CITRATE 296 ML BOTTLE PO ONE (03:33)
--- NOTE | 2020-04-11 03:39 | ER Document Report ---
ED GI/ - General Chief Complaint: Abdominal Pain Stated Complaint: STOMACH PAIN Time Seen by Provider: 04/11/20 03:33 Primary Care Provider: CLOVER ONEIL MD [COMMUNITY BASED STAFF] - 04/15/20 Notes: Patient is a 34-year-old female that comes emergency department for chief complaint of abdominal pain for the past 3 days. Pain is intermittent, sometimes sharp, sometimes feels like it goes to her back. Pain is in both upper and lower abdomen, she is reports decreased bowel movements and believes she is constipated. She states she has not had a good bowel movement for over a week now. Her urine is slightly dark but she denies dysuria, she denies nausea, vomiting, fever/chills, or sick contacts. She denies any surgeries except C- sections, she takes no daily medications. TRAVEL OUTSIDE OF THE [place] IN LAST 30 DAYS: No - Related Data Allergies/Adverse Reactions: No Known Allergies Allergy (Verified 07/29/19 08:35) Past Medical History - General Information source: Patient - Social History Smoking Status: Never Smoker Frequency of alcohol use: None Drug Abuse: None Lives with: Family Family History: DM, Hypertension Renal/ Medical History: Denies: Hx Peritoneal Dialysis Past Surgical History: Reports: Hx Section - Immunizations Immunizations up to date: Yes Hx Diphtheria, Pertussis, Tetanus Vaccination: Yes Review of Systems - Review of Systems Constitutional: No symptoms reported EENT: No symptoms reported Cardiovascular: No symptoms reported Respiratory: No symptoms reported Gastrointestinal: See HPI Genitourinary: No symptoms reported Female Genitourinary: No symptoms reported Musculoskeletal: No symptoms reported Skin: No symptoms reported Hematologic/Lymphatic: No symptoms reported Neurological/Psychological: No symptoms reported Physical Exam - Vital signs Vitals: Temp Pulse Resp BP Pulse Ox 98.3 F 80 16 125/71 100 04/10/20 23:00 04/10/20 23:00 04/10/20 23:00 04/10/20 23:00 04/10/20 23:00 - Notes Notes: GENERAL: Alert, interacts well. No acute distress. HEAD: Normocephalic, atraumatic. EYES: Pupils equal, round, and reactive to light. Extraocular movements intact. ENT: Oral mucosa moist, tongue midline. Oropharynx unremarkable. Airway patent. NECK: Full range of motion. Supple. Trachea midline. No lymphadenopathy. LUNGS: Clear to auscultation bilaterally, no wheezes, rales, or rhonchi. No respiratory distress. Non-tender chest wall. HEART: Regular rate and rhythm. No murmur ABDOMEN: Minimal generalized tenderness of the abdomen, no overt distention, no guarding, no rigidity. EXTREMITIES: Moves all 4 extremities spontaneously. No edema, normal radial and dorsalis pedis pulses bilaterally. No cyanosis. BACK: no cervical, thoracic, lumbar midline tenderness. No saddle anesthesia, normal distal neurovascular exam. Moves all extremities in full range of motion. NEUROLOGICAL: Alert and oriented x3. Normal speech. Cranial nerves II through XII grossly intact. Strength 5/5 in all extremities. PSYCH: Normal affect, normal mood. SKIN: Warm, dry, normal turgor. No rashes or lesions noted. Course - Re-evaluation Re-evalutation: Patient alert and well-appearing on my exam. She has minimal diffuse abdominal tenderness, no guarding. Vital signs unremarkable. CBC unremarkable except for noted microcytic anemia which is new to the patient. She denies bloody stools. She reports very heavy menstrual cycles. I discussed details of this but patie nt will not be placed on iron because KUB does show significant stool load and patient is already having trouble with constipation which is her main complaint to me in the emergency department. Urinalysis unremarkable except for some elevated specific gravity, chemistry unremarkable, is negative. I discussed options with patient. I do have a low suspicion of acute abdomen based on her exam, I have discussed treatment plan, follow-up, and return precautions. Patient states appreciation and agreement. Patient states she does not have a primary care and she is looking for 1, she was provided with referral, she states she will follow-up. - Vital Signs Vital signs: Temp Pulse Resp BP Pulse Ox 99.2 F 80 16 123/67 98 04/11/20 02:38 04/11/20 02:38 04/10/20 23:00 04/11/20 02:38 04/11/20 02:38 - Laboratory Result Diagrams: 04/11/20 00:41 04/11/20 00:41 Laboratory results interpreted by me: 04/11/20 04/11/20 00:41 00:41 Hgb 9.4 L Hct 30.6 L MCV 63 L MCH 19.5 L MCHC 30.7 L RDW 19.1 H Lymph % (Auto) 50.3 H Seg Neutrophils % 34.2 L Urine Urobilinogen 2.0 H Urine Ascorbic Acid 40 H Discharge - Discharge Clinical Impression: Abdominal pain Qualifiers: Abdominal location: generalized Qualified Code(s): R10.84 - Generalized abdominal pain Condition: Stable Disposition: HOME, SELF-CARE Additional Instructions: Your work-up shows anemia, low red blood cells, please follow-up with the primary care referral for additional management and treatment of this. See the referral, call for your appointment. You have a lot of stool in your bowel that we will try to clear. I recommend that you drink 1/4 to 1/2 of the magnesium citrate, then if after several hours you do not have bowel movement results drink another 1/4 to half. You may need to take the colace stool softener for the next 2-4 days as well as prescribed. Take bentyl for cramping, zofran for nausea. Improve your diet - increased vegetables, fruits, fiber, and fluids are very helpful to clear your bowels. Return if you worsen including vomiting, fever, severe worsening pain, or any other concerning or worsening symptoms. Prescriptions: Dicyclomine HCl [Bentyl 20 mg Tablet] 20 mg PO QID PRN #20 tablet PRN Reason: Docusate Sodium [Colace 100 mg Capsule] 100 mg PO ASDIR PRN #30 capsule PRN Reason: Ondansetron [Zofran Odt 4 mg Tablet] 1 - 2 tab PO Q4H PRN #15 tab.rapdis PRN Reason: For Nausea/Vomiting Forms: Return to Work Referrals: CLOVER ONEIL MD [COMMUNITY BASED STAFF] - 04/15/20
[2020-04-11 11:16] LABS: PATH REVIEW PATHOLOGIST REVIEWED
== END 2020-04-11 03:50 | disposition home or self-care (01) ==
LOC: ER 22:13
DX: K59.00 Constipation, unspecified (principal); R10.84 Generalized abdominal pain; R10.817 Generalized abdominal tenderness; R39.89 Other symptoms and signs involving the genitourinary system; D50.9 Iron deficiency anemia, unspecified; N92.0 Excessive and frequent menstruation with regular cycle
CPT/HCPCS: 99284; 36415; 83690; 84703; 85025; 80053; 81001; 74018; J3490

== ENCOUNTER 2020-06-22 19:14 | Emergency (ER) | payer BC ==
[2020-06-22] MEDS ORDERED: KETOROLAC TROMETHAMINE 60 MG/2 ML SDV IM ONE (19:25)
[2020-06-22] MEDS ORDERED: DEXAMETHASONE 4 MG TABLET PO ONE (19:26)
[2020-06-22 19:29] VITALS: BP 149/104
--- NOTE | 2020-06-22 19:32 | ER Document Report ---
HPI - HPI Time Seen by Provider: 06/22/20 19:21 Notes: CHIEF COMPLAINT: Left wrist pain for a month HPI: 35-year-old female presenting for left wrist pain for a month. Numbness and tingling to the fingers for 3 to 4 days. Patient does work cutting chicken. Has taken no medications for same. Has not seen a primary care provider for same. States occasionally the pain does radiate up the arm. ROS: See HPI - all other systems were reviewed and are otherwise negative Constitutional: no fever Integumentary: no rash Allergy: no hives Musculoskeletal: + extremity pain or swelling Neurological: + numbness/tingling, no weakness MEDICATIONS: I agree with the patient medications as charted by the RN. ALLERGIES: I agree with the allergies as charted by the RN. PAST MEDICAL HISTORY/PAST SURGICAL HISTORY: Reviewed and agree as charted by RN. SOCIAL HISTORY: Reviewed and agree as charted by RN. FAMILY HISTORY: No significant familial comorbid conditions directly related to patient complaint EXAM: Reviewed vital signs as charted by RN. CONSTITUTIONAL: Alert and oriented and responds appropriately to questions. Well-appearing; well-nourished HEAD: Normocephalic; atraumatic EYES: Conjunctivae clear, sclerae non-icteric ENT: normal nose; no rhinorrhea; moist mucous membranes NECK: Supple without meningismus; non-tender; no cervical lymphadenopathy, no masses CARD: symmetric distal pulses RESP: Normal chest excursion without splinting or tachypnea ABD/GI: non-distended BACK: The back appears normal EXT: Normal ROM in all joints; no cyanosis, no effusions, no edema. Mild tenderness on palpation of the volar aspect of the left wrist without visible swelling or bruising. Radial and ulnar pulses are present in the left wrist. Patient able to fully flex and extend the fingers of the left hand as well as abduct the thumb. Slight limitation of full extension at the left wrist secondary to complaints of pain. Sensation does appear to be intact in the fingertips to touch with capillary refill less than 3 seconds. SKIN: Normal color for age and race; warm; dry; good turgor NEURO: Moves all extremities equally; Motor and sensory function intact PSYCH: The patient's mood and manner are appropriate. Grooming and personal hygiene are appropriate. MDM: 35-year-old female presenting with volar wrist pain for a month. Now with some numbness and tingling in the fingertips. The distribution she describes of the numbness and tingling does go beyond the median nerve although I suspect this is likely carpal tunnel like. Will place in a cock-up splint for comfort, refer to orthopedics for follow-up will place patient on consistent anti- inflammatories and ice. There was no trauma. No indication for x-ray imaging today - REPRODUCTIVE Reproductive: DENIES: : Past Medical History - Social History Smoking Status: Unknown if Ever Smoked Family History: DM, Hypertension Renal/ Medical History: Denies: Hx Peritoneal Dialysis Past Surgical History: Reports: Hx Section - Immunizations Immunizations up to date: Yes Hx Diphtheria, Pertussis, Tetanus Vaccination: Yes Vertical Provider Document - INFECTION CONTROL TRAVEL OUTSIDE OF THE [place] IN LAST 30 DAYS: No Course - Re-evaluation Re-evalutation: 06/22/20 19:32 Was noted to be mildly hypertensive today although she is mildly uncomfortable. We spoke about this at length she will obtain a primary care provider for follow-up and recheck of her blood pressure Procedures - Immobilization Left Wrist Time completed: 19:32 Pre-Proc Neuro Vasc Exam: Normal Immobilizer type: Cock-up Performed by: PCT Post-Proc Neuro Vasc Exam: Normal, Unchanged from pre-exam Alignment checked and good: Yes Discharge - Discharge Clinical Impression: Radiculopathy Qualifiers: Spinal region: unspecified Qualified Code(s): M54.10 - Radiculopathy, site unspecified Condition: Stable Disposition: HOME, SELF-CARE Additional Instructions: Use the wrist splint for comfort for the next 3 to 5 days. Do not sleep in the splint. Ice the underside of the left wrist for 5 to 10 minutes at a time [address] ice directly on the skin. Take the anti-inflammatories as prescribed. Call the orthopedic clinic on Wednesday to schedule close follow-up in the office Prescriptions: Diclofenac Sodium [Voltaren 50 Mg Tablet.] 50 mg PO BID #20 tablet. Referrals: JACQUELYN SILVER JR, DO [ACTIVE PROVISIONAL STAFF] - Follow up as needed NACHO ROMERO MD [ACTIVE STAFF] - Follow up as needed
== END 2020-06-22 19:55 | disposition home or self-care (01) ==
LOC: ER 19:14
DX: M54.10 Radiculopathy, site unspecified (principal); M25.532 Pain in left wrist; R20.0 Anesthesia of skin; M79.602 Pain in left arm
CPT/HCPCS: 99284; 96372; J8540; J1885